=== PATIENT | female | born 1985 | race Caucasian/White ===

== ENCOUNTER 2016-11-05 14:21 | Inpatient (IN) | payer BC ==
--- NOTE | 2016-11-05 15:04 | PDOC.LDHP ---
Labor and Delivery H&P Chief complaint: scheduled induction HPI: 31 yo @ 40w6d by LMP c/w 9w1d sono who presents for late term induction. Pt has PMHx including nephrectomy for donation, MTHFR mutation without any h/o VTE, PCOS for which she takes Metformin prior to becoming and has continued. Current gestational age (weeks): 40 Due date: 10/30/16 Dating criteria: last menstrual period Grav: 1 Para: 0 Current complications: none Abnormal US findings: No Past Medical History: Insulin resistance, ? PCOS MTHFR mutation Current medications: pre-sinan vitamins, other (B12, Folic acid 4 mg QD, Metformin for IR not for DM) Previous surgical history: other (Nephrectomy for donation ) Social history: none - Physical Exam Vital signs reviewed and normal: yes FHT: category 1 (120s, mod vincenzo, +accels, no decels ) [place] contractions every: irregular irritability - Vaginal Exam cm dilated: 0 (at clinic evaluation ) Effacement: 0% Station: -3 - OB Labs Blood type: O RH: positive HIV: negative RPR: negative HEPSAg: negative 1 hour GCT: negative GBS: negative Urine drug screen: not done Additional Labs: Maternity 21 and msAFP wnl [place] screening panel negative - Assessment 40w6d IUP Late term induction MTHFR mutation without any h/o VTE - Plan Plan: admit to L&D, cervical ripening, informed consent obtained, anesthesia consult for pain management
[2016-11-05] MEDS ORDERED: Acetaminophen 500 MG TAB PO PRN (21:59)
[2016-11-05] MEDS ORDERED: Ibuprofen 800 MG TAB PO PRN (21:59)
[2016-11-05] MEDS ORDERED: Carboprost 250 MCG/ML AMP IM PRN (21:59)
[2016-11-05] MEDS ORDERED: Misoprostol 200 MCG TAB PR PRN (21:59)
[2016-11-05] MEDS ORDERED: Lidocaine 1% (PF) 30 ML VIAL SC PRN (21:59)
[2016-11-05] MEDS ORDERED: Ondansetron HCl/PF 4 MG/2 ML Vial IVP PRN (21:59)
[2016-11-05] MEDS ORDERED: HYDROcodone/Acetaminophen 5/325 mg Tablet PO PRN (21:59)
[2016-11-05] MEDS ORDERED: Promethazine HCl 25 MG/ML VIAL IM PRN (21:59)
[2016-11-05] MEDS ORDERED: LR / Pitocin 40 units/1000 ml 1,000 ML IV PRN (21:59)
[2016-11-05] MEDS ORDERED: Zolpidem Tartrate 5 MG TAB PO PRN (21:59)
[2016-11-05 22:11] VITALS: BMI 37.2
[2016-11-05] MEDS: Misoprostol 100 MCG TAB PO SCH (22:15)
[2016-11-05 22:29] LABS: Hematocrit 36.6 % (36.0-47.0); Mean Platelet Volume 9.8 fL (7.4-10.4); Red Blood Cell (RBC) Count 3.93 mill/uL (4.20-5.40); White Blood Cell (WBC) Count 10.6 thou/uL (4.8-10.8)
[2016-11-05] MEDS: Lactated Ringer's 1,000 ML IV SCH (22:37)
[2016-11-06] MEDS: Misoprostol 100 MCG TAB PO SCH ×6 (02:55→17:05)
[2016-11-06] MEDS: Lactated Ringer's 1,000 ML IV SCH ×4 (04:45→20:05)
[2016-11-06] MEDS ORDERED: LR 500 ML/Oxytocin 10 units 500 ML IV SCH (07:00)
--- NOTE | 2016-11-06 08:35 | PDOC.LDPN ---
Labor & Delivery Progress Note - Subjective Subjective: comfortable - Objective Vital signs reviewed and normal: yes General: NAD Uterine fundus: non tender SVE: 1 Effacement: 25% Station: -3 FHT: category 1 (120s, mod vincenzo, +accels, no decels ) [place] contractions every: q2-4 min - Assessment (1) 41 weeks gestation of Code(s): Z3A.41 - 41 WEEKS GESTATION OF Current Visit: Yes Status : Acute (2) Elective induction of labor planned Code(s): [id number] - Current Visit: Yes Status: Acute -: Give additional dose of cytotec this AM as exam has improved, however, still unfavorable for pitocin. [place] progress. Discussed expected course given G1 and induction
--- NOTE | 2016-11-06 13:13 | PDOC.LDPN ---
Labor & Delivery Progress Note - Subjective Subjective: painful contractions - Objective Vital signs reviewed and normal: yes General: NAD Uterine fundus: non tender Dilation: 1 Effacement: 50% Station: -2 FHT: category 1 (130s, mod vincenzo, +accels, no decels, intermittently tracing maternal HR when pt sitting up, FHTs wnl. ) [place] contractions every: q2-4 min - Assessment (1) 41 weeks gestation of Code(s): Z3A.41 - 41 WEEKS GESTATION OF Current Visit: Yes Status : Acute (2) Elective induction of labor planned Code(s): [id number] - Current Visit: Yes Status: Acute -: Start pitocin now that effacement improved. Continue to monitor.
[2016-11-06] MEDS ORDERED: Fentanyl 4 mcg/Marc 0.1% Cadd 100 ML ONE (16:17)
[2016-11-06] MEDS: Fentanyl 4mcg/Marcaine 0.1% Cassette 100 ML EPIDURAL SCH (17:00)
[2016-11-06] MEDS ORDERED: Promethazine HCl 25 MG/ML VIAL IM PRN (17:11)
[2016-11-06] MEDS ORDERED: Eucerin (Mineral Oil/Petrolatum,White) 30 gm Jar TOP PRN (17:11)
[2016-11-06] MEDS ORDERED: Naloxone HCl 0.4 mg/ml Vial IVP PRN ×2 (17:11)
[2016-11-06] MEDS ORDERED: diphenhydrAMINE HCl 50 MG/ML 1 ML VIAL IVP PRN (17:11)
[2016-11-06] MEDS ORDERED: ePHEDrine/0.9% NaCl/PF SYRINGE 50 mg/10 ml SLOW IVP PRN (17:11)
[2016-11-06] MEDS ORDERED: Acetaminophen 325 MG TAB PO PRN (17:11)
[2016-11-06] MEDS ORDERED: Lactated Ringer's 500 ML IV PRN (17:11)
[2016-11-06] MEDS ORDERED: Ondansetron HCl/PF 4 MG/2 ML Vial IVP PRN (17:11)
[2016-11-06] MEDS ORDERED: Communication Order-Pharmacy FS SCH (17:15)
--- NOTE | 2016-11-06 17:33 | PDOC.LDPN ---
Labor & Delivery Progress Note - Subjective Subjective: comfortable - Objective Vital signs reviewed and normal: yes General: NAD Uterine fundus: non tender Dilation: 1 Effacement: 50% Station: -2 FHT: category 1 (140s, mod vincenzo, +accels, no decels ) [place] contractions every: q2min Procedures: cook balloon placed with 60/60 cc - Assessment (1) 41 weeks gestation of Code(s): Z3A.41 - 41 WEEKS GESTATION OF Current Visit: Yes Status : Acute (2) Elective induction of labor planned Code(s): [id number] - Current Visit: Yes Status: Acute -: Pt has been started on pitocin with minimal change, however, still in latent labor. Placed cook balloon for further cervical ripening in combination with pitocin. Continue to monitor. Pt now has epidural
[2016-11-07] MEDS: Fentanyl 4mcg/Marcaine 0.1% Cassette 100 ML EPIDURAL SCH ×2 (00:54→07:12)
[2016-11-07] MEDS: Lactated Ringer's 1,000 ML IV SCH ×2 (01:48→07:00)
--- NOTE | 2016-11-07 03:04 | PDOC.LDPN ---
Labor & Delivery Progress Note - Objective Vital signs reviewed and normal: yes Dilation: 6 Effacement: 90% Station: -1 FHT: category 2 (140s, mod vincenzo, ) - Assessment (1) 41 weeks gestation of Code(s): Z3A.41 - 41 WEEKS GESTATION OF Current Visit: Yes Status : Acute (2) Elective induction of labor planned Code(s): [id number] - Current Visit: Yes Status: Acute
--- NOTE | 2016-11-07 03:15 | PDOC.LDPN ---
Labor & Delivery Progress Note - Subjective Subjective: other (Notified by RN of concern of cat 2 strip ) - Objective Vital signs reviewed and normal: yes Dilation: 6 Effacement: 90% Station: -1 FHT: category 2 (140s, mod vincenzo, no accels, + late decels >> 140s, mod vincenzo, + accels, no decels after pitocin d/c'ed) [place] contractions every: q2-4 min > decreased after pitocin d/c'ed IUPC placed: yes FSE placed: yes Resuscitative measures: maternal oxygen, maternal IV fluids, maternal position change - Assessment (1) 41 weeks gestation of Code(s): Z3A.41 - 41 WEEKS GESTATION OF Current Visit: Yes Status : Acute (2) Elective induction of labor planned Code(s): [id number] - Current Visit: Yes Status: Acute -: RN d/c'ed pitocin due to late decels with improvement in FHTs. Plan to restart at 8 mU/min. Reviewed tracing for last several hours and prior to recent tracing before stopping pitocin fetus has had reassuring FHTs and it has improved with above interventions. Pt has made slight progress in the last 4+ hours in station, effacement and dilation, however, her MVUs are difficult to asses due to IUPC malfunction which has been replaced again by OBH. Will plan to restart pitocin if tracing continues to improve and allow. If pt does not make cervical advancement with restarting pitocin, will recommend PLTCS. Continue to monitor and maternal status closely.
[2016-11-07] MEDS ORDERED: Bupivacaine 0.25% HCL 30 ML VIAL ONE (07:20)
[2016-11-07] MEDS: Misoprostol 100 MCG TAB PO SCH ×2 (07:51→07:52)
--- NOTE | 2016-11-07 08:35 | PDOC.LDPN ---
Labor & Delivery Progress Note - Subjective Subjective: comfortable - Objective Vital signs reviewed and normal: yes Abnormal vital signs: HTN after discussion of recommending PLTCS General: NAD Uterine fundus: non tender Dilation: 7 Effacement: 90% Station: 0 FHT: category 2 (150s, min vincenzo, no accels, no decels; fetus did have reactivity with scalp stimulation ) [place] contractions every: q2min Resuscitative measures: maternal oxygen, maternal IV fluids, maternal position change - Assessment (1) 41 weeks gestation of Code(s): Z3A.41 - 41 WEEKS GESTATION OF Current Visit: Yes Status : Acute (2) Elective induction of labor planned Code(s): [id number] - Current Visit: Yes Status: Acute -: Reviewed with pt that she has not made adequate cervical change in > 4 hours and IUPC has shobha replaced several times, however, not able to assess if ctx adequate. Due to arrest of dilation and FHTs with developing concerning cat 2 tracing, recommend PLTCS. Pt amenable to procedure. Notified anesthesia.
[2016-11-07] MEDS ORDERED: Bicitra 30 ML UDCUP ONE (08:41)
[2016-11-07] MEDS ORDERED: Bupivacaine/Epinephrine 0.5% 10 ML VIAL ONE (09:21)
[2016-11-07] MEDS ORDERED: PHENYLEPHRINE-NS 100 MCG/ML 10 ML SYRINGE ONE ×2 (09:21→10:30)
[2016-11-07] MEDS ORDERED: Dexamethasone 4 mg/ml Vial ONE (09:21)
[2016-11-07] MEDS ORDERED: Ondansetron HCl/PF 4 MG/2 ML Vial ONE (09:21)
[2016-11-07] MEDS ORDERED: Oxytocin 10 UNITS/ML VIAL ONE (09:21)
[2016-11-07] MEDS ORDERED: ePHEDrine/0.9% NaCl/PF SYRINGE 50 mg/10 ml ONE (09:21)
[2016-11-07] MEDS ORDERED: Naloxone HCl 0.4 mg/ml Vial IVP PRN ×2 (09:24)
[2016-11-07] MEDS ORDERED: diphenhydrAMINE HCl 50 MG/ML 1 ML VIAL IVP PRN (09:24)
[2016-11-07] MEDS ORDERED: Promethazine HCl 25 MG SUPP PR PRN (09:24)
[2016-11-07] MEDS ORDERED: Promethazine HCl 25 MG/ML VIAL IM PRN ×2 (09:24→10:46)
[2016-11-07] MEDS ORDERED: Ondansetron HCl/PF 4 MG/2 ML Vial IVP PRN ×3 (09:24→10:46)
[2016-11-07] MEDS ORDERED: Naloxone HCl 0.4 mg/ml Vial IV PRN (09:24)
[2016-11-07] MEDS ORDERED: Eucerin (Mineral Oil/Petrolatum,White) 30 gm Jar TOP PRN (09:24)
[2016-11-07] MEDS ORDERED: Meperidine HCl/PF 25 MG/ML VIAL SLOW IVP PRN (09:25)
[2016-11-07] MEDS ORDERED: HYDROmorphone 2 MG/ML VIAL SLOW IVP PRN (09:25)
[2016-11-07] MEDS ORDERED: Communication Order-Pharmacy FS SCH (09:30)
--- NOTE | 2016-11-07 10:37 | PRG ---
DATE OF SERVICE: 11/07/2016 TIME OF INTERVENTION: Roughly 10:00 a.m. LOCATION: Labor and Delivery SECTION [place] NOTE In brief, I was asked to assist with a primary with Dr. Aldana for failure to progress at 7 cm. I assisted with a primary low transverse section under Pfannenstiel skin incision. No complications were noted. Child was vigorous at . It was a female. For full detai ls, please turn to the full dictation by Dr. Mónica Aldana.
[2016-11-07] MEDS ORDERED: HYDROcodone/Acetaminophen 5/325 mg Tablet PO PRN ×2 (10:46)
[2016-11-07] MEDS ORDERED: Adacel (T-DAP) 0.5 ML VIAL IM ONE (10:46)
[2016-11-07] MEDS ORDERED: Bisacodyl 10 MG SUPP PR PRN (10:46)
[2016-11-07] MEDS ORDERED: Zolpidem Tartrate 5 MG TAB PO PRN (10:46)
[2016-11-07] MEDS ORDERED: Acetaminophen 325 MG TAB PO PRN (10:46)
[2016-11-07] MEDS ORDERED: diphenhydrAMINE HCl 25 MG CAP PO PRN (10:46)
[2016-11-07 10:54] LABS: CO2 Tension (PaCO2) 48.9 mmHg (44.0-56.0)
[2016-11-07] MEDS ORDERED: LR w/ Pitocin 40 units/1000 ML BAG IV SCH (11:00)
[2016-11-07] MEDS ORDERED: Misoprostol 200 MCG TAB PR SCH (11:00)
--- NOTE | 2016-11-07 12:49 | PDOC.OPDEL ---
OB Operative/Delivery Note Delivery Dr/Surgeon: Mónica Aldana DO Assist: Sher Young MD Pre-Delivery Diagnosis: arrest of dilation Procedure/Post Delivery Dx: primary low transverse CS Weeks gestation: 41 Anesthesia: epidural - Findings A Sex: female Weight: 8 lb 3 oz - 5 min: 9 (apgars 9/9) - Additional Findings/Plan Placenta delivered: manual removal findings: low transverse hysterotomy without extension, normal uterus, normal tubes, normal ovaries Estimated blood loss: 600 cc Compilations/Other Findings: delivered in OP position without complications. Immediate cry upon delivery. Dictation# [id number] Post delivery plan: routine recovery
--- NOTE | 2016-11-07 15:40 | OP ---
DATE OF PROCEDURE: 11/07/2016 PREOPERATIVE DIAGNOSES: 1. A 41-week 1 day intrauterine . 2. Failed induction of labor. 3. Arrest of dilation at 7 cm. 4. Suspected malposition in occiput posterior position. 5. 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 POSTOPERATIVE DIAGNOSES: 1. A 41-week 1 day intrauterine . 2. Failed induction of labor. 3. Arrest of dilation. 4. malposition occiput posterior position. 5. 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 PROCEDURE: Primary low transverse delivery via Pfannenstiel skin incision. SURGEON: Mónica Aldana D.O. PEDIATRIC PSYCHOLOGIST: Sher Young M.D. COMPLICATIONS: None. ANESTHESIA: Epidural with Duramorph. ESTIMATED BLOOD LOSS: 600 mL. IV FLUIDS: 700 mL. URINE OUTPUT: 50 mL of ab urine. FINDINGS: Normal appearing uterus, fallopian tubes and ovaries bilaterally. Normal appearing placenta, clear amniotic fluid. Viable female infant in cephalic presentation, occiput posterior position with Apgars 9 and 9, weighing 8 pounds and 3 ounces. The infant cord gas had a pH of 7.33 and a base excess of -1.2, a PaCO2 of 48.9, and a bicarbonate of 25.3. INDICATIONS FOR THE PROCEDURE: Ms. Martinez is a 31-year-old G1, P0 who was admitted at 40 weeks and 6 days for late term induction. The patient underwent cervical ripening using Cytotec and a Cook balloon followed by augmentation with Pitocin. She advanced into active labor with cervical dilation of 7 cm, however remained unchanged for 6 hours of active augmentation. The fetus also displayed a category 2 tracing with minimal variability and inability to further increase augmentation. The patient was counseled and a primary C- section was recommended. She was amenable to the procedure. Prior to procedure , the position was also evaluated and thought to be in occiput posterior position, likely contributing to arrest of dilation. PROCEDURE IN DETAIL: The patient was brought to the operating room. She was placed in supine position. Her epidural had initially been bolused. She was prepped and draped in a sterile fashion and given Ancef preoperatively. She had SCDs in place and a Wiggins catheter had been placed with her epidural. Anesthesia was assessed and proved to be adequate. An official timeout was performed. A Pfannenstiel skin incision was made using the scalpel, this was carried down to underlying fascial layer. The fascia was incised in the midline using the scalpel and extended using Garcia scissors. Superior aspect of the fascial incision was grasped using Frances clamps, tented upward and dissected free from underlying rectus abdominis muscles. The same was performed to the inferior aspect of the fascial incision. The rectus abdominis muscles were using blunt dissection. The peritoneum was entered bluntly. The peritoneal incision was extended using sharp dissection. An Jake O retractor was placed into the abdomen and appropriately secured. A bladder flap was created. A low transverse hysterotomy was made using the scalpel and hysterotomy was extended using blunt dissection. The amniotic membranes were ruptured upon entrance into the hysterotomy noting clear amniotic fluid. The was delivered in cephalic presentation, occiput posterior position. 's cord was clamped and cut. was handed to the waiting Neonatology team. Cord sample for cord gases and cord blood were obtained. Placenta was delivered manually intact. The uterus was cleared of all clot and debris. The hysterotomy was closed in a running locking fashion using #1 Monocryl obtaining hemostasis. An imbrication layer was also performed along the hysterotomy. The hysterotomy required an additional figure- of-eight stitch at the right apex... The pelvis was irrigated and cleared of all clot and debris. The fallopian tubes and ovaries were evaluated and appeared normal. Jake O retractor was removed from the abdomen. The peritoneum was closed using 3-0 Vicryl. The rectus abdominis muscles were hemostatic. The fascia was closed using 0 PDS. The subcutaneous layer was copiously irrigated and hemostatic using the Bovie. The subcutaneous layer was closed using 3-0 Vicryl, and the skin was closed using 4-0 Monocryl and Dermabond. The patient tolerated the procedure well. There were no complications. All counts were correct x3. Both mother and baby were transferred to routine recovery. ENE
[2016-11-07] MEDS: HYDROcodone/Acetaminophen 5/325 mg Tablet PO PRN (21:28)
[2016-11-07] MEDS: Docusate (Surfak) 240 MG CAP PO SCH (21:29)
[2016-11-08] MEDS: HYDROcodone/Acetaminophen 5/325 mg Tablet PO PRN ×5 (02:59→22:48)
[2016-11-08 05:33] LABS: Hematocrit 28.7 % (36.0-47.0); Mean Platelet Volume 9.6 fL (7.4-10.4); Red Blood Cell (RBC) Count 3.01 mill/uL (4.20-5.40); White Blood Cell (WBC) Count 14.9 thou/uL (4.8-10.8)
[2016-11-08] MEDS: Prenatal Vitamin 1 TAB PO SCH (07:54)
[2016-11-08] MEDS: Docusate (Surfak) 240 MG CAP PO SCH ×2 (07:55→19:17)
[2016-11-08] MEDS: Lactated Ringer's 1,000 ML IV SCH ×2 (07:55→14:52)
[2016-11-08] MEDS: Misoprostol 100 MCG TAB PO SCH (09:16)
--- NOTE | 2016-11-08 09:20 | PDOC.PP ---
Post Progress Note Post Day #: 1 -: Pain controlled. Minimal lochia. breast feeding. PO intake tolerated: yes Flatus: yes Ambulation: yes Vital Signs (12 hours) Temp Pulse Resp BP 11/08/16 08:14 97.8 F 75 20 111/75 11/08/16 07:55 97.8 F 75 20 11/08/16 04:00 97.8 F 69 18 109/62 11/08/16 00:00 98.8 F 77 18 Weight Weight 210 lb - Physical Examination General: NAD Cardiovascular: RRR Abdominal: no distention, appropriately TTP Deviation from normal: incision covered with clean bandage Fundus firm & at: below umbilicus Extremities: negative homans (B) Skin: no rash Neurological: no gross focal deficits Psychiatric: A&Ox3 Result Diagrams: 11/08/16 05:10 Additional Labs: Post Labs Blood Type O POSITIVE 11/05/16 22:19 Hep Bs Antigen Non-Reactive S/CO (NonReactive) 11/05/16 22:19 (1) 41 weeks gestation of Code(s): Z3A.41 - 41 WEEKS GESTATION OF Status: Acute (2) Elective induction of labor planned Code(s): [id number] - Status: Acute - Assessment/Plan Doing well post op, s/p PLTCS Continue post op care. Plan for d/c tomorrow
[2016-11-08] MEDS: Simethicone Chewable 80 MG TAB PO PRN (22:13)
[2016-11-09] MEDS: HYDROcodone/Acetaminophen 5/325 mg Tablet PO PRN ×3 (03:12→10:46)
[2016-11-09] MEDS ORDERED: Lidocaine 2% PF 10 ML AMP (For Epidural Use) ONE (06:02)
[2016-11-09] MEDS ORDERED: Bupivacaine HCl 0.5%/Epinephrine 1:200,000/PF 30 ml Vial ONE (06:02)
[2016-11-09] MEDS ORDERED: Bupivacaine PF 0.5% 30 ML VIAL ONE (06:02)
[2016-11-09] MEDS: Simethicone Chewable 80 MG TAB PO PRN (06:32)
[2016-11-09 09:29] VITALS: BP 126/69; TEMP 98.5
[2016-11-09] MEDS: Prenatal Vitamin 1 TAB PO SCH (09:34)
[2016-11-09] MEDS: Docusate (Surfak) 240 MG CAP PO SCH (09:35)
[2016-11-09] MEDS ORDERED: Zolpidem Tartrate 5 MG TAB PO PRN (11:14)
== END 2016-11-09 12:30 | disposition home or self-care (01) | DRG 765 ==
LOC: L&D 21:28 → 3SW 11-07 12:59
PROVIDERS: ADMIT Obstetrics & Gynecology; ATTEND Obstetrics & Gynecology
PROC: 10H07YZ Insertion of Other Device into Products of Conception, Via Natural or Artificial Opening (ICD-10-PCS; 2016-11-06)
PROC: 0U7C7ZZ Dilation of Cervix, Via Natural or Artificial Opening (ICD-10-PCS; 2016-11-06)
PROC: 3E0P7GC Introduction of Other Therapeutic Substance into Female Reproductive, Via Natural or Artificial Opening (ICD-10-PCS; 2016-11-06)
PROC: 10D00Z1 Extraction of Products of Conception, Low, Open Approach (ICD-10-PCS; principal; 2016-11-07)
DX: O48.0 Post-term pregnancy (principal); E72.12 Methylenetetrahydrofolate reductase deficiency; O99.284 Endocrine, nutritional and metabolic diseases complicating childbirth; O64.0XX0 Obstructed labor due to incomplete rotation of fetal head, not applicable or unspecified; Z3A.40 40 weeks gestation of pregnancy; O61.0 Failed medical induction of labor; O62.0 Primary inadequate contractions; Z37.0 Single live birth
CPT/HCPCS: 36415; 82805; 85027; 86780; 86850; 86900; 86901; 87340; 87389; 90715; J0670; J1100; J2001; J2210; J2274; J2405; J2590; J3490; J7120; S0020